=== PATIENT | male | born 1990 | race Caucasian/White ===

== ENCOUNTER 2019-11-01 10:02 | Emergency (ER) | payer OTHER ==
[~2019-11-01] VITALS: Ht 175.3 cm; Wt 76.0 kg
[2019-11-01 10:12] VITALS: BP 131/87
[2019-11-01] MEDS ORDERED: HYDR-3686 PO (10:40)
[2019-11-01] MEDS ORDERED: dexamethasone 4mg tablet PO ONE (10:40)
[2019-11-01] MEDS ORDERED: PRED20TA PO (10:40)
[2019-11-01] MEDS ORDERED: BETA15CR4 TOP (10:40)
== END 2019-11-01 11:01 | disposition home or self-care (01) ==
LOC: ER 10:03
DX: S93.691A Other sprain of right foot, initial encounter (principal); L23.7 Allergic contact dermatitis due to plants, except food; X58.XXXA Exposure to other specified factors, initial encounter; Y93.89 Activity, other specified; Y92.89 Other specified places as the place of occurrence of the external cause; Y99.8 Other external cause status; Z79.899 Other long term (current) drug therapy
CPT/HCPCS: 99283